=== PATIENT | female | born 1975 | race Two or more races ===

== ENCOUNTER 2018-09-28 07:19 | Emergency (ER) | payer MEDICAID ==
[~2018-09-28] VITALS: Ht 165.1 cm; Wt 59.1 kg
[2018-09-28] MEDS ORDERED: FEXO-58 PO (07:26)
[2018-09-28] MEDS ORDERED: NAPR250T4 PO (07:26)
[2018-09-28] MEDS ORDERED: MethylPREDNISolone SOD SUCC 125 MG/2 ML VIAL IM ONE (09:15)
[2018-09-28] MEDS ORDERED: GENTAMICIN SULFATE 0.3% OPHTHALMIC SOLUTION 5 ML OU ONE (09:15)
[2018-09-28 09:48] VITALS: BP 122/85
== END 2018-09-28 09:50 | disposition home or self-care (01) ==
LOC: EMS 07:21
DX: T78.40XA Allergy, unspecified, initial encounter (principal); H10.13 Acute atopic conjunctivitis, bilateral; Y92.89 Other specified places as the place of occurrence of the external cause
CPT/HCPCS: 96372; 99283; J2930